=== PATIENT | male | born 1985 | race Two or more races ===

== ENCOUNTER 2022-03-15 06:44 | Emergency (ER) | payer SELFPAY ==
[~2022-03-15] VITALS: Ht 170.2 cm; Wt 82.0 kg
[2022-03-15 07:10] VITALS: BP 108/76
[2022-03-15] MEDS ORDERED: NALO4SPR BOTHNSTRLS (07:49)
== END 2022-03-15 08:00 | disposition home or self-care (01) ==
LOC: ER 06:44
DX: T40.411A Poisoning by fentanyl or fentanyl analogs, accidental (unintentional), initial encounter (principal); F11.188 Opioid abuse with other opioid-induced disorder; R40.1 Stupor; Y93.89 Activity, other specified; Y92.89 Other specified places as the place of occurrence of the external cause
CPT/HCPCS: 93005; 99283